=== PATIENT | male | born 1940 | race Caucasian/White ===

== ENCOUNTER 2017-06-15 20:21 | Emergency (ER) | payer OTHER ==
[~2017-06-15 20:21] MED LIST: EPINEPHRINE 0.1 MG/ML 10 ML SYG IVP ONE
[2017-06-15 20:45] LABS: HEMATOCRIT 33.9 % (42-54)
== END 2017-06-15 22:51 | disposition expired ==
LOC: EDBD 20:21 → EDH 20:21
DX: I46.9 Cardiac arrest, cause unspecified (principal)
CPT/HCPCS: 36415; 82948; 85014; 85018; 92950; 99285; J0171